=== PATIENT | male | born 1950 | race Caucasian/White ===

== ENCOUNTER 2021-07-15 11:54 | Observation (INO) ==
[2021-07-15] MEDS ORDERED: 0.9 % Sodium Chloride 500 ML IVC ONE (13:00)
[2021-07-15 13:18] LABS: Basophils % 0.3 %; Eosinophils % 0.1 %; Hematocrit 36.6 % (37.5-50.1); Hemoglobin 13.5 g/dL (12.9-16.9); Immature Granulocytes % 0.6 % (0-4); Lymphocytes # 1.2 K/mcL (0.6-4.6); Lymphocytes % 16.6 %; Mean Corpuscular HGB Conc 36.9 g/dL (31.6-35.5); Mean Corpuscular Hemoglobin 33.3 pg (28.0-33.3); Mean Corpuscular Volume 90.1 fL (83.0-100.0); Mean Platelet Volume 8.6 fL (9.4-12.4); Monocytes # 0.6 K/mcL (0.0-1.3); Monocytes % 8.3 %; Neutrophils # 5.3 K/mcL (1.6-8.9); Platelet Count 226 K/mcL (140-400); Red Blood Count 4.06 M/mcL (4.19-5.50); Segmented Neutrophils % 74.1 %; White Blood Count 7.2 K/mcL (4.3-11.1)
[2021-07-15 13:38] LABS: BUN/Creatinine Ratio 9 (6-26); Blood Urea Nitrogen 7 mg/dL (8-23); Calcium 9.3 mg/dL (8.6-10.3); Carbon Dioxide 30 mEq/L (23-29); Chloride 79 mEq/L (98-107); Glucose 100 mg/dL (70-105); Osmolality,Calculated 238 (280-300); Potassium 3.9 mEq/L (3.5-5.1); Sodium 115 mEq/L (136-145); eGFR For African Americans > 60 (> 60); eGFR For Non-African Americans > 60 (> 60)
[2021-07-15] MEDS: 0.9 % Sodium Chloride 1,000 ML IVC SCH ×2 (13:40→21:49)
[2021-07-15] MEDS ORDERED: Naloxone 0.4 MG/ML INJ IVP PRN ×2 (14:58→19:21)
[2021-07-15] MEDS: Nicotine 21 MG PATCH.TD24 TD SCH (19:55)
[2021-07-15] MEDS ORDERED: Melatonin 3 MG TABLET PO SCH (21:00)
[2021-07-16 05:21] LABS: Basophils % 0.6 %; Eosinophils % 0.6 %; Hematocrit 32.8 % (37.5-50.1); Immature Granulocytes % 0.6 % (0-4); Lymphocytes % 29.3 %; Mean Corpuscular HGB Conc 36.6 g/dL (31.6-35.5); Mean Corpuscular Hemoglobin 33.1 pg (28.0-33.3); Mean Corpuscular Volume 90.6 fL (83.0-100.0); Mean Platelet Volume 8.8 fL (9.4-12.4); Monocytes # 0.6 K/mcL (0.0-1.3); Monocytes % 9.2 %; Neutrophils # 4.1 K/mcL (1.6-8.9); Platelet Count 216 K/mcL (140-400); Red Blood Count 3.62 M/mcL (4.19-5.50); Red Cell Distribution Width 11.2 % (11.5-14.5); Segmented Neutrophils % 59.7 %; White Blood Count 6.9 K/mcL (4.3-11.1)
[2021-07-16] MEDS: 0.9 % Sodium Chloride 1,000 ML IVC SCH (05:31)
[2021-07-16 05:37] LABS: BUN/Creatinine Ratio 9 (6-26); Blood Urea Nitrogen 6 mg/dL (8-23); Calcium 8.3 mg/dL (8.6-10.3); Carbon Dioxide 27 mEq/L (23-29); Chloride 91 mEq/L (98-107); Glucose 96 mg/dL (70-105); Osmolality,Calculated 253 (280-300); Potassium 3.4 mEq/L (3.5-5.1); Sodium 123 mEq/L (136-145); eGFR For African Americans > 60 (> 60); eGFR For Non-African Americans > 60 (> 60)
[2021-07-16] MEDS ORDERED: Folic Acid 1 MG TABLET PO SCH (09:00)
[2021-07-16] MEDS ORDERED: lisinopriL 5 MG TABLET PO SCH (09:00)
[2021-07-16] MEDS ORDERED: Aspirin Enteric Coated 81 MG Tablet PO SCH (09:00)
[2021-07-16] MEDS ORDERED: Thiamine (B-1) 100 MG TABLET PO SCH (09:00)
[2021-07-16] MEDS ORDERED: Vitamin B Complex/Vit C/Vit E 1 EACH TABLET PO SCH (09:00)
[2021-07-16] MEDS ORDERED: Megestrol Acetate 400 MG/10 ML UDC PO SCH (09:00)
[2021-07-16] MEDS: Nicotine 21 MG PATCH.TD24 TD SCH (09:42)
[2021-07-16] MEDS ORDERED: Tiotropium 10 INH DOSE IH SCH (10:00)
[2021-07-16] MEDS ORDERED: Budesonide/Formoterol 160/4.5 1 PUFF INH IH SCH (10:00)
[2021-07-16 11:53] VITALS: BP 126/68; PULSE 75; RESP 17; TEMP 98.3; O2SAT 99
== END 2021-07-16 14:40 | disposition home or self-care (01) ==
LOC: EMEROOPIK 11:54 → INPPIK 11:54
PROVIDERS: ADMIT Internal Medicine; ATTEND Internal Medicine